=== PATIENT | female | born 2000 | race Two or more races ===

== ENCOUNTER 2025-06-27 14:37 | Emergency (ER) | payer OTHER ==
[~2025-06-27] VITALS: Ht 162.6 cm; Wt 56.7 kg
[2025-06-27 15:46] VITALS: BP 119/78; O2SAT 99
[2025-06-27] MEDS ORDERED: KETOROLAC TROMETHAMINE 30 MG VIAL IV ONE (17:00)
[2025-06-27] MEDS ORDERED: CLINDAMYCIN PHOSPHATE 150 MG/ML (600mg) IV ONE (17:00)
[2025-06-27 19:15] LABS: INR 1.11
== END 2025-06-27 21:03 | disposition home or self-care (01) ==
LOC: ER 14:38
PROVIDERS: General Practice
DX: L08.9 Local infection of the skin and subcutaneous tissue, unspecified (principal)